=== PATIENT | female | born 1940 | race Caucasian/White ===

== ENCOUNTER 2016-12-26 07:49 | Inpatient (IN) | payer OTHER, MEDICARE ==
[~2016-12-26] VITALS: Ht 170.2 cm; Wt 74.8 kg
[2016-12-26] MEDS ORDERED: INSULIN HUMAN REGULAR 1,000 UNITS/10 ML VIAL SQ PRN (08:45)
[2016-12-26] MEDS ORDERED: ceFAZolin 1,000 MG/NS 100 ML IV SCH ×2 (08:45)
[2016-12-26] MEDS ORDERED: SODIUM CHLORID 0.9% 500 ML IV PRN (08:45)
[2016-12-26] MEDS ORDERED: METOPROLOL TARTRATE 25 MG TAB PO PRN (08:45)
[2016-12-26] MEDS ORDERED: CHLORHEXIDINE GLUCONATE 2 % 1 PACK (2 CLOTHS) TOPICAL PRN (08:45)
[2016-12-26] MEDS ORDERED: HEPARIN SODIUM - SQ 10,000 UNITS/ML VIAL SQ SCH (08:45)
[2016-12-26] MEDS ORDERED: LACTATED RINGER'S 1000 ML IV PRN (08:45)
[2016-12-26] MEDS ORDERED: ASPI-110 PO (08:49)
[2016-12-26] MEDS ORDERED: LEVO100T5 PO (08:49)
[2016-12-26] MEDS ORDERED: LOSA50TA PO (08:49)
[2016-12-26] MEDS ORDERED: IBUP800T23 PO (08:49)
[2016-12-26] MEDS ORDERED: FEXO15TA PO (08:49)
[2016-12-26] MEDS ORDERED: VITA100021 SL (08:49)
[2016-12-26] MEDS ORDERED: CLAR10CA3 PO (08:49)
[2016-12-26] MEDS ORDERED: ZOCO20TA PO (08:49)
[2016-12-26] MEDS ORDERED: OMEP20TA PO (08:49)
[2016-12-26] MEDS ORDERED: CALC600T25 (08:49)
[2016-12-26] MEDS ORDERED: CHOL100025 CHEW (08:49)
[2016-12-26 08:57] VITALS: BP 153/82; PULSE 65; RESP 20; TEMP 97.8; O2SAT 96
[2016-12-26] MEDS ORDERED: ACETAMINOPHEN 1000 MG/100 ML VIAL IV ONE (11:14)
[2016-12-26] MEDS ORDERED: DEXAMETHASONE SOD PHOS 4 MG/ML VIAL ONE (11:22)
[2016-12-26] MEDS ORDERED: MIDAZOLAM HCL 2 MG/2 ML VIAL ONE (11:22)
[2016-12-26] MEDS ORDERED: PROPOFOL 200 MG/20 ML AMP IV ONE (12:00)
[2016-12-26] MEDS ORDERED: ONDANSETRON HCL 4 MG/2 ML VIAL IV PUSH ONE (12:00)
[2016-12-26] MEDS ORDERED: NORMOSOL R INJ 2,000 ML IV ONE (12:00)
[2016-12-26] MEDS ORDERED: LIDOCAINE 1%/EPINEPHrine 1:100,000 SOLN 50 ML VIAL INFIL ONE (12:20)
[2016-12-26] MEDS ORDERED: ceFAZolin INJ 1,000 MG VIAL IV ONE (14:30)
[2016-12-26] MEDS ORDERED: SUGAMMADEX SODIUM 200 MG/2 ML VIAL IV PUSH ONE ×2 (15:45)
[2016-12-26] MEDS: KETOROLAC TROMETHAMINE 30 MG/ML (IVP) VIAL IVP SCH ×2 (16:00→21:12)
[2016-12-26] MEDS ORDERED: diphenhydrAMINE HCL 25 MG CAP PO PRN (16:00)
[2016-12-26] MEDS ORDERED: LORazepam 0.5 MG TAB PO PRN (16:00)
[2016-12-26] MEDS ORDERED: SODIUM CHLORIDE 0.9% FLUSH 10 ML FLUSH IV FLUSH PRN (16:00)
[2016-12-26] MEDS ORDERED: ONDANSETRON HCL 4 MG/2 ML VIAL IVP PRN (16:00)
[2016-12-26] MEDS ORDERED: fentaNYL CITRATE 250 MCG/5 ML AMP ONE ×2 (16:22)
[2016-12-26] MEDS ORDERED: DO NOT ADM ANY ANTICOAGULANT DRUGS PRN (16:30)
--- NOTE | 2016-12-26 17:16 | EKG ---
Date Performed: 12/26/2016 Time Performed: 16:58:34 PTAGE: 76 years EKG: Sinus rhythm INCOMPLETE RIGHT BUNDLE BRANCH BLOCK NONSPECIFIC ST & T-WAVE ABNORMALITY ABNORMAL ECG NO PREVIOUS TRACING DOCTOR: Leno Cummings Interpretating Date/Time 12/26/2016 17:14:27
[2016-12-26 17:40] VITALS: O2SAT 97
[2016-12-26] MEDS: D5-1/2 NS + KCL 20 MEQ INJ 1,000 ML IV SCH ×2 (19:02→21:12)
[2016-12-26 20:00] VITALS: BP 149/66; PULSE 81; RESP 17; TEMP 96.1; O2SAT 96
[2016-12-26] MEDS: PANTOPRAZOLE SOD 20 MG DELAYED RELEASE TAB PO SCH (21:00)
[2016-12-26] MEDS: SODIUM CHLORIDE 0.9% FLUSH 10 ML FLUSH IV FLUSH SCH (21:10)
[2016-12-27] VITALS (7 sets, daily range): BP systolic 115–158; BP diastolic 52–75; PULSE 76–79; RESP 16–19; TEMP 96.1–99.1; O2SAT 92–99
[2016-12-27] MEDS ORDERED: traMADol HCL 50 MG TAB PO ONE (02:00)
[2016-12-27] MEDS ORDERED: ACETAMINOPHEN 325 MG TAB PO PRN (02:00)
[2016-12-27] MEDS ORDERED: ACETAMINOPHEN 325 MG TAB PO ONE (02:00)
[2016-12-27] MEDS: METOCLOPRAMIDE HCL 10 MG/2 ML VIAL IV PRN ×3 (02:03→14:12)
[2016-12-27] MEDS: KETOROLAC TROMETHAMINE 30 MG/ML (IVP) VIAL IVP SCH ×2 (03:59→14:38)
[2016-12-27] MEDS: LEVOTHYROXINE SODIUM 100 MCG TAB PO SCH (05:58)
[2016-12-27 07:08] LABS: BASOPHIL % 0.3 % (0.0-2.0); HEMATOCRIT 32.3 % (35.0-46.0); HEMO FLAGS DIFF FINAL; LYMPH % 12.9 % (9.0-44.0); LYMPHOCYTE # 1.6 TH/MM3 (1.0-4.8); MEAN CELL VOLUME 93.1 FL (80.0-100.0); MEAN CORPUSCULAR HEMOGLOBIN 30.8 PG (27.0-34.0); MONO % 8.1 % (0.0-8.0); NEUT % 78.7 % (16.0-70.0); PLATELET COUNT 156 TH/MM3 (150-450); RED BLOOD COUNT 3.47 MIL/MM3 (4.00-5.30); WHITE BLOOD COUNT 12.7 TH/MM3 (4.0-11.0)
[2016-12-27 07:32] LABS: BICARBONATE 27.7 MEQ/L (21.0-32.0); POTASSIUM 3.8 MEQ/L (3.5-5.1)
[2016-12-27] MEDS ORDERED: ULTR50TA5 PO (07:55)
[2016-12-27] MEDS: LORATADINE 10 MG TAB PO SCH (08:08)
[2016-12-27] MEDS: PRAVASTATIN SOD 40 MG TAB PO SCH (08:08)
[2016-12-27] MEDS: SODIUM CHLORIDE 0.9% FLUSH 10 ML FLUSH IV FLUSH SCH ×2 (08:08→20:32)
[2016-12-27] MEDS: LOSARTAN 50 MG TAB PO SCH (08:08)
[2016-12-27] MEDS ORDERED: NON-FORMULARY DRUG (Fexofenadine (Allegra Allergy) 180 MG) PO SCH (09:00)
[2016-12-27] MEDS: traMADol HCL 50 MG TAB PO PRN ×2 (12:37→20:30)
[2016-12-27] MEDS ORDERED: PILL SPLITTER OTHER PRN (14:30)
[2016-12-27] MEDS: PROMETHAZINE HCL 25 MG TAB PO PRN ×2 (15:30→20:30)
[2016-12-27] MEDS: PANTOPRAZOLE SOD 20 MG DELAYED RELEASE TAB PO SCH ×2 (15:31→20:30)
[2016-12-27] MEDS: D5-1/2 NS + KCL 20 MEQ INJ 1,000 ML IV SCH (21:58)
[2016-12-28 00:19] VITALS: BP 143/65; PULSE 75; RESP 18; TEMP 97.5; O2SAT 92
[2016-12-28 04:43] VITALS: BP 136/65; PULSE 68; RESP 18; TEMP 97.8; O2SAT 95
[2016-12-28] MEDS: LEVOTHYROXINE SODIUM 100 MCG TAB PO SCH (05:48)
[2016-12-28] MEDS: D5-1/2 NS + KCL 20 MEQ INJ 1,000 ML IV SCH (07:58)
[2016-12-28 08:00] VITALS: BP 175/79; PULSE 86; RESP 20; TEMP 97; O2SAT 95
[2016-12-28 08:01] VITALS: O2SAT 94
[2016-12-28] MEDS: LOSARTAN 50 MG TAB PO SCH (09:53)
[2016-12-28] MEDS: LORATADINE 10 MG TAB PO SCH (09:53)
[2016-12-28] MEDS: PANTOPRAZOLE SOD 20 MG DELAYED RELEASE TAB PO SCH (09:53)
[2016-12-28] MEDS: PRAVASTATIN SOD 40 MG TAB PO SCH (09:53)
[2016-12-28] MEDS: SODIUM CHLORIDE 0.9% FLUSH 10 ML FLUSH IV FLUSH SCH (09:54)
--- NOTE | 2016-12-29 20:36 | MD ---
cc: KELLY FERRER KELLY L. MD ADMISSION DATE: 12/26/2016 DISCHARGE DATE: 12/28/2016 PROCEDURES 12/26/2016 robotic-assisted laparoscopic hysterectomy, bilateral salpingo-oophorectomy (with resection of bilateral ovarian masses), omentectomy, peritoneal biopsies, intraperitoneal washings. ADMISSION DIAGNOSIS Bilateral adnexal masses. DISCHARGE DIAGNOSIS Ovarian cancer. HOSPITAL COURSE She did well during the first 24 hours of surgery. She tolerated oral intake. Lord catheter removed pending voiding, hemodynamically stable. OBJECTIVE In's and out's 2850/1400. LABORATORY DATA Labs H&H 10.7 over 32.3, platelet count 156, white count 12.7. Electrolytes essentially normal, potassium 3.8, BUN and creatinine 13 and 0.8, glucose slightly elevated at 134 and chloride slightly elevated 109. PHYSICAL EXAMINATION GENERAL: She is alert, oriented x three. LUNGS: Lungs are clear except for mild rales at the bases. CARDIOVASCULAR: Regular rate and rhythm. ABDOMEN: Soft. Incisions clean and dry. 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 EXTREMITIES: Nontender. ASSESSMENT Postop day #1. FINDINGS Preliminary pathology steps taken at surgery reviewed, activities, restrictions again discussed. She is doing well in the early postop period and anticipate she will meet criteria for discharge to home. Therefore plan is to discharge to home today. Our office number is made available. She is to contact our office to schedule follow up within 2 weeks. She is to resume prior medications. She will have a prescription for tramadol for pain. She will also have a prescription for Reglan for nausea as needed and she is to call our office between now the time of scheduled followup should she have any questions or problems. MD JIGNESH Coyne/KARISHMA /7:59 AM /8:28 PM
--- NOTE | 2016-12-30 06:08 | MP ---
cc: KELLY FERRER KELLY L. MD DATE OF PROCEDURE 12/26/2016. PREOPERATIVE DIAGNOSIS Bilateral adnexal masses. POSTOPERATIVE DIAGNOSES 1. Bilateral adnexal masses. 2. Probable ovarian cancer. PROCEDURE Robotic-assisted laparoscopic hysterectomy, bilateral salpingo-oophorectomy, omentectomy, intraperitoneal biopsies, intraperitoneal cytology. 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 ANESTHESIA General endotracheal anesthesia ESTIMATED BLOOD LOSS 150 cc IV FLUIDS 2500 cc OUTPUT 300 cc HISTORY A 76-year-old female who, in the process of evaluation and management of diverticulitis, had imaging which showed bilateral adnexal masses approximately 4-5 cm each, no overt evidence to suggest metastatic disease. Tumor markers were essentially normal. She was counseled regarding options and presents now for definitive surgical management. FINDINGS The uterine cavity sounded to 7 cm. There was a solid and cystic mass replacing the right ovary approximately 5 cm. There was a complex mass, predominantly cystic, arising from the left adnexa, approximately 4 cm, mobile. No adhesions. Uterus grossly normal. There was no appreciably enlarged pelvic or para-aortic lymph nodes and the peritoneal surfaces are smooth. Liver diaphragm edges smooth. Omentum grossly appeared normal. Large and small bowel and adjacent mesentery are without peritoneal implants. There is diverticulum without evidence of active diverticulosis and minimal post-inflammatory changes or adhesions are in the pelvis. 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 On preliminary it appears to be low-grade endometrioid type. At the conclusion of the case all abnormalities were completely removed in that the abnormalities were confined to the ovaries with intact capsules, no obvious neoplastic change or nodularity on the surface of the ovaries. There was no rupture or disruption of the capsule. There was no evidence of disease elsewhere. PROCEDURE The patient was taken to the operating room, placed in dorsal lithotomy position after general endotracheal anesthesia was administered. Time-out was undertaken. The patient was identified by sight recognition and hospital ID bracelet and the proposed procedure was reviewed and confirmed. She was carefully positioned in padded [place] stirrups. Her arms were padded and secured to her sides. She was further secured to the operating field with egg-crate padding and tape in an across the chest, over the shoulder fashion. All sites were noted to be properly aligned with no malalignments or pressure points. The cervix was grasped, the uterine cavity was sounded, the cervix dilated. A standard V-Care manipulator was inserted and secured in the usual fashion, a Lord catheter placed in the bladder. She was returned to low lithotomy position. We completed draping in anticipation of laparoscopy and confirmed that an orogastric tube was in the stomach on suction. Manual elevation of the abdominal wall and direct laparoscopic visualization. A 5-mm cannula was placed in the left upper quadrant and atraumatic entry was confirmed. Carbon dioxide gas was insufflated. She was placed in steep Trendelenburg position. The anatomy was explored with the findings as described above. The small bowel was folded back on its mesenteric root and three Ray-Nessa sponges were placed along the root of the small bowel mesentery. The robotic system was brought into the operative field, attached in the usual fashion. Monopolar scissors, fenestrated bipolar forceps and ProGrasp manipulators were placed in arms #1, 2 and 3 respectively and I took my place at the surgeon's console. The right round ligament was isolated, cauterized and transected. The anterior and posterior leaves of the broad ligament were opened. The right ureter was identified, the right infundibulopelvic ligament was isolated to the level of the pelvic brim where it was cauterized and transected. Posterior peritoneum was opened along the right side of the uterus and cervix and the right vesicouterine peritoneum was dissected off the lower uterine segment and cervix. The right uterine vessels were skeletonized, cauterized and transected as were the cardinal, paracervical and uterosacral ligaments. Attention was directed toward the left side where the left round ligament was isolated, cauterized and transected. The anterior and posterior leaves of broad ligament were opened. The left ureter was identified, the left infundibulopelvic ligament was isolated. The intervening peritoneum was opened. The infundibulopelvic ligament was isolated to the level of the pelvic brim where it was cauterized and transected. The posterior peritoneum was opened along the left side of the uterus and cervix and the left vesicouterine peritoneum dissected off the lower uterine segment and cervix. Left uterine vessels were isolated, cauterized and transected as were the cardinal, paracervical and uterosacral ligaments. The utero-ovarian ligaments were transected bilaterally as the two adnexal masses were removed and placed into the pericolic gutter for later retrieval. Colpotomy was performed the cervix from the upper vagina and the specimen was withdrawn transvaginally which included uterus and cervix and a pneumooccluder balloon was placed in the vagina to maintain pneumoperitoneum. An EndoCatch bag was introduced transvaginally to capture both of the adnexal masses which were maintained within the EndoCatch bag and delivered transvaginally. No disruption of the capsule, no rupture of the masses were spilled of content. Instruments 1 and 3 were exchanged for needle drivers as 0 Vicryl suture was introduced. The vaginal cuff was closed starting at the left corner, full-thickness closure including the edge of the uterosacral ligament, posterior peritoneum, tied via instrument tie. The closure was held on counter-traction as a running continuous full-thickness closure was carried across the vaginal cuff to the contralateral corner where it was similarly secured, tied via instrument tie. The needle was cut and removed. The pelvis was thoroughly irrigated. Small bleeders were rendered hemostatic with bipolar cautery. The integrity of the bladder was confirmed and there was a good margin between the edge of the bladder in the vaginal cuff suture line, good peristalsis of ureters bilaterally. The masses had the initial appearance of being benign. Steps were taken to initiate closure as the robotic instruments were removed and the robotic system was disengaged from the operative field. However, with preliminary pathology results as discussed with Dr. Hansen, there appeared to be cancer arising from both ovaries within each of the adnexal masses and so attention was redirected toward additional staging biopsies as the robotic system was re-engaged and instruments were reintroduced. A series of peritoneal biopsies were obtained from the abdomen and pelvis using sharp dissection and focal cautery. These were collectively removed laparoscopically and labeled as peritoneal biopsies. The infracolic omentum was again inspected, noted to be grossly normal, was placed on distal traction as the nonvascular attachments to the transverse colon were isolated, taken down with sharp dissection. Vascular attachments were isolated, cauterized with bipolar cautery and transected starting near the hepatic flexure and continuing with dissection along the transverse colon toward the splenic flexure as the infracolic omentum was removed and the sites were inspected, noted to be hemostatic. Again, the retroperitoneal lymph nodes were visually and palpably inspected. There were no appreciably enlarged lymph nodes. There was no other finding to suggest abnormality and it was felt that further dissection may result in morbidity that exceeded benefit and it was felt that all reasonable surgical objectives had been completed. The robotic instruments were then removed. The robotic system was disengaged from the operative field. I reentered the bedside under sterile condition. Each of the three Ray-Nessa sponges that had been placed in the peritoneal cavity were now removed individually. Each were inspected and noted to be removed in their entirety through the 12-mm cannula. Now a 15-cm EndoCatch bag was introduced to capture the omentum which was brought up through the central cannula and was able to be removed contained within the bag was sent for permanent histopathologic analysis. The 12-mm fascial defect was closed with interrupted 0 Vicryl sutures under direct laparoscopic visualization using a needle pass apparatus. The sutures were tied securely which rendered the fascia completely airtight and hemostatic. The remaining cannulas were withdrawn. Carbon dioxide gas was removed. 3-0 Vicryl subcutaneous, 3-0 Vicryl subcuticular and Steri-Strips used to close the skin incisions. She was returned to dorsal lithotomy position. Exam confirmed the vaginal cuff was well supported, hemostatic. There were no vaginal lacerations, no remaining foreign objects in the vagina. Preliminary and final counts were correct. She was turned to dorsal supine position and was pending reversal of anesthesia when I left the operating room to precede her to the Post-Anesthesia Care Unit. MD JIGNESH Coyne/BASIM /5:03 AM /5:47 AM
== END 2016-12-28 10:38 | disposition home or self-care (01) | DRG 738 ==
LOC: HSDC 07:49 → HSDI 16:03 → HOCA 19:44
PROVIDERS: ADMIT Obstetrics & Gynecology Gynecologic Oncology; ATTEND Obstetrics & Gynecology Gynecologic Oncology
PROC: 0UTC4ZZ Resection of Cervix, Percutaneous Endoscopic Approach (ICD-10-PCS; 2016-12-26)
PROC: 0UT24ZZ Resection of Bilateral Ovaries, Percutaneous Endoscopic Approach (ICD-10-PCS; 2016-12-26)
PROC: 0UT74ZZ Resection of Bilateral Fallopian Tubes, Percutaneous Endoscopic Approach (ICD-10-PCS; 2016-12-26)
PROC: 8E0W4CZ Robotic Assisted Procedure of Trunk Region, Percutaneous Endoscopic Approach (ICD-10-PCS; 2016-12-26)
PROC: 0DBW4ZX Excision of Peritoneum, Percutaneous Endoscopic Approach, Diagnostic (ICD-10-PCS; 2016-12-26)
PROC: 0UT94ZZ Resection of Uterus, Percutaneous Endoscopic Approach (ICD-10-PCS; principal; 2016-12-26 11:23)
DX: C56.2 Malignant neoplasm of left ovary (principal); C56.1 Malignant neoplasm of right ovary; I10 Essential (primary) hypertension; K21.9 Gastro-esophageal reflux disease without esophagitis; E03.9 Hypothyroidism, unspecified; Z87.891 Personal history of nicotine dependence
CPT/HCPCS: 80048; 85025; 86850; 86900; 86901; 88112; 88305; 88307; 88331; 93005; 94002; 94150; J0131; J0690; J1100; J1644; J1885; J2250; J2405; J2765; J3010; J3480; J7120; Q0169